=== PATIENT | male | born 1970 | race Caucasian/White ===

== ENCOUNTER 2017-04-07 06:39 | Emergency (ER) | payer BC, OTHER ==
[2017-04-07 06:46] VITALS: BMI 41.8
[2017-04-07] MEDS ORDERED: SODIUM CHLORIDE FOR INHALATION 3 ML VIAL.NEB IH ONE (07:07)
--- NOTE | 2017-04-07 07:07 | PDOC ---
History of Present Illness - General Chief Complaint: Shortness of Breath Stated Complaint: SHORTNESS OF BREATH Time Seen by Provider: 04/07/17 06:57 History Source: Patient Exam Limitations: No Limitations - History of Present Illness Initial Comments: 04/07/17 07:08 46y M hx of IDDM, CHARISSA (cpap in evening) presents with complaint of sob. The pt states that he has felt sob for the past day, but he was having increased nasla congestion since monday followed by a subjective fever on mon-mon. Pt does notes his breathing feels more 'shallow' than usual, but it feels alittle better when he breaths from his mouth. Pt also endorses a mild frontal headache. Pt denies any chest pain, van, orthpnea, leg swelling, coughing, body aches. pt denies any neck pain/stiffness, visio nchanges, numbness/tingling/ weakness. grandaughter with cold like symptoms but he has not had too much contact with her. pt has not been taking any meds for his sypmtoms. PMD Dr. King (in [place]) Past History - Past Medical History Allergies/Adverse Reactions: Allergies Allergy/AdvReac Type Severity Reaction Status Date / Time No Known Allergies Allergy Verified 04/07/17 06:46 Home Medications: Ambulatory Orders Metformin HCl [Glucophage] 1,000 mg PO BID 04/07/17 - Suicide/Smoking/Psychosocial Hx Smoking History: Never smoked Have you smoked in the past 12 months: No Information on smoking cessation initiated: No Hx Alcohol Use: No Drug/Substance Use Hx: No Review of Systems - Review of Systems Able to Perform ROS?: Yes Comments:: 04/07/17 07:23 Constitutional - no reported Fever, Chills, HEENT: +nasal congestion no reported vision changes, sore throat Respiratory:+sob no reported cough, hemoptysis Cardiac: no reported chest pain, palpitations, light headedness, leg swelling Abd/GI: no reported abd pain, nausea, vomiting, blood per rectum, melena, diarrhea : no reported dysuria, frequency, discharge Musculskelatal - no reported back pain, joint swelling skin - no reported bruising, erythema, rash neurological: _+neck no reported numbness, focal weakness, tingling, ataxia, hematologic: no reported anemia, easy bruising, easy bleeding *Physical Exam - Vital Signs Last Vital Signs Temp Pulse Resp BP Pulse Ox 98.1 F 84 20 140/92 98 04/07/17 06:44 04/07/17 06:44 04/07/17 06:44 04/07/17 06:44 04/07/17 07:01 - Physical Exam Comments: 04/07/17 07:23 GENERAL: The patient is awake, alert, and fully oriented, Nontoxic - in no acute distress. HEAD: Normocephalic, atraumatic. EYES: extraocular movements intact, sclera anicteric, conjunctiva clear. ENT: Normal voice, Moist mucous membranes. NECK: Normal range of motion, supple LUNGS: Breath sounds equal, clear to auscultation bilaterally. No wheezes, no rhonchi, no rales. HEART: Regular rate and rhythm, normal S1 and S2 without murmur, rub or gallop. ABDOMEN: Soft, nontender, normoactive bowel sounds. No guarding, no rebound. . No CVA tenderness EXTREMITIES: Normal range of motion, no edema. No clubbing or cyanosis. No cords, erythema, or tenderness. NEUROLOGICAL: No facial assymetry, Normal speech, PSYCH: Normal mood, normal affect. SKIN: Warm, Dry, normal turgor, Heart Score/ECG Review - ECG Impressions Comment:: 04/07/17 07:22 Twelve-lead EKG was performed and reviewed by me. There is normal sinus rhythm with a normal rate. Rate 77 The axis is normal. The intervals are normal. There is normal R wave progression There are no ST or T wave abnormalities. Impression: Normal twelve-lead EKG Medical Decision Making - Medical Decision Making 04/07/17 07:21 46yM hx of IDDM CHARISSA presents with complaint of nasal congestion, sob when he is breathing through his nostrils and improved with mouth breathing w/ other concern sypmtoms. on exam the pts exam is normal with clear lungs, normal vitals , normal sat. suspet sypmtms due to nasal congestion will ck cxr to r/o cardiomegaly, chf ekg to screen for cardiac etiology, but doubt acs due to lack of exertional smptoms and cp. 04/07/17 08:06 cxr neg ekg neg pt feeling better will dc pt with supportive mangaement (Sudafed/nettipot) will hav ept fu with pmd I discussed the physical exam findings, ancillary test results and final diagnoses with the patient. I answered all of the patient's questions. The patient was satisfied with the care received and felt comfortable with the discharge plan and treatment plan. The patient will call their primary care physician within 24 hours to arrange follow-up and will return to the Emergency Department with any new, persistent or worsening symptoms. *DC/Admit/Observation/Transfer Diagnosis at time of Disposition: Sinus congestion - Discharge Dispostion Disposition: HOME Condition at time of disposition: Improved Admit: No - Referrals Referrals: Alex King MD [Staff Physician] - - Patient Instructions Printed Discharge Instructions: DI for Viral Upper Respiratory Infection -- Adult Additional Instructions: Return to the emergency department immediately with ANY new, persistent or worsening symptoms. Take Sudafed as directed. You may try a product like netipot to clear your sinuses You MUST call and follow up with your doctor tomorrow for further evaluation of your symptoms. Results were discussed with you. Please make sure your doctor reviews the results of your emergency evaluation. Print Language: CZECH - Post Discharge Activity
[2017-04-07 09:13] VITALS: BP 134/78; PULSE 89; TEMP 98.6
--- NOTE | 2017-04-11 01:54 | EKG ---
Test Reason : Blood Pressure : / mmHG Vent. Rate : 077 BPM Atrial Rate : 077 BPM P-R Int : 164 ms QRS Dur : 086 ms QT Int : 374 ms P-R-T Axes : 050 019 055 degrees QTc Int : 423 ms NORMAL SINUS RHYTHM NORMAL ECG NO PREVIOUS ECGS AVAILABLE Confirmed by LOKI LAI MD ([id number]) on 04/11/2017 1:54:22 AM Referred By: Confirmed By:LOKI LAI MD
== END 2017-04-07 09:09 | disposition home or self-care (01) ==
LOC: JER 06:39
PROC: 3E0F7GC Introduction of Other Therapeutic Substance into Respiratory Tract, Via Natural or Artificial Opening (ICD-10-PCS; principal; 2017-04-07)
DX: J34.89 Other specified disorders of nose and nasal sinuses (principal); J06.9 Acute upper respiratory infection, unspecified; B97.89 Other viral agents as the cause of diseases classified elsewhere; E11.9 Type 2 diabetes mellitus without complications; Z79.84 Long term (current) use of oral hypoglycemic drugs
CPT/HCPCS: 71020-TC; 93005; 93010; 99282-25